=== PATIENT | female | born 1925 | race Caucasian/White ===

== ENCOUNTER 2016-03-29 12:17 | Emergency (ER) ==
[2016-03-29 12:22] VITALS: BP 163/84; TEMP 97.8; BMI 28.3
--- NOTE | 2016-03-29 13:08 | CT ---
EXAM: CT left knee without contrast HISTORY: Initial presentation for left knee injury. COMPARISON: None available. TECHNIQUE: Multiple axial images of the left knee were obtained without intravenous contrast. Imag es were reformatted in the sagittal and coronal planes. FINDINGS: Bone mineralization is decreased. There is no fracture or dislocation. Mild-moderate os teoarthritic changes seen throughout the knee. There is a moderate sized suprapatellar joint effusi on. Chondrocalcinosis noted in the menisci. No focal soft tissue abnormality is seen. Mild subcuta neous edema is present. Atherosclerotic calcifications noted. IMPRESSION: 1. No fracture or dislocation. 2. 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 3. Chondrocalcinosis of the menisci. 4. Subcutaneous edema.
--- NOTE | 2016-03-29 13:19 | ED.PDOC ---
General ED Provider: Dr. NITIN COTE-ER Chief Complaint: Knee Pain/Injury Stated Complaint: i fell in a hole and injured my knee Time Seen by Physician: 12:20 Mode of Arrival: Wheelchair Information Source: Patient Exam Limitations: No limitations Primary Care Provider: STU SHEIKH Nursing and Triage Documentation Reviewed and Agree: Yes Musculoskeletal Complaint Exam - Lower Extremity Complaint/Exam Location of Pain: Reports: Left, Knee Mechanism of Injury: Reports: Trauma Onset/Duration: 2 days Symptoms Are: Still present Onset of Pain: Reports: Immediate Initial Severity: Moderate Current Severity: Moderate Location: Reports: Discrete Character: Reports: Dull, Aching Alleviating: Reports: None Aggravating: Reports: Movement, Weight bearing, Prolonged standing Able to Bear Weight: Yes Associated Signs and Symptoms: Reports: Swelling. Denies: Redness, Bruising, Fever, Weakness, Numbness, Tingling DVT Risk Factors: Reports: Recent trauma Septic Arthritis Risk Factors: Reports: None Lower Extremity Findings: Present: Swelling, Ecchymosis, Erythema, Tenderness NV Bundle Intact Distal to Injury: Yes Compartment Syndrome Risk Factors: Present: Pain. Absent: Paralysis, Pallor, Pulselessness, Paresthesias Hayder's Sign Present: No Differential Diagnoses: Fracture, Strain, Sprain Review of Systems - Review Of Systems Constitutional: Reports: No symptoms Eyes: Reports: No symptoms Ears, Nose, Mouth, Throat: Reports: No symptoms Respiratory: Reports: No symptoms Cardiac: Reports: No symptoms GI: Reports: No symptoms : Reports: No symptoms Musculoskeletal: Reports: Joint pain, Joint swelling Skin: Reports: No symptoms Neurological: Reports: No symptoms Endocrine: Reports: No symptoms Hematologic/Lymphatic: Reports: No symptoms All Other Systems: Reviewed and Negative Past Medical History - Past Medical History Endocrine: Reports: Unknown Cardiovascular: Reports: Unknown Respiratory: Reports: Unknown Hematological: Reports: Unknown Gastrointestinal: Reports: Unknown Genitourinary: Reports: Unknown Neuro/Psych: Reports: Unknown Musculoskeletal: Reports: Unknown Cancer: Reports: Unknown Last Menstrual Period: none - Surgical History General Surgical History: Reports: Unknown - Family History Family History: Reports: Unknown - Social History Smoking Status: Never smoker Hx Substance Use: No Alcohol Screening: None Lives: With family Physical Exam - Physical Exam Appearance: Well-appearing, No pain distress, Well-nourished Pain Distress: Mild Eyes: KATHARINA, EOMI, Conjunctiva clear ENT: Ears normal, Nose normal, Oropharynx normal Neck: Supple Respiratory: Airway patent, Breath sounds clear, Breath sounds equal, Respirations nonlabored Cardiovascular: RRR, Pulses normal, No rub, No murmur GI/: Soft, Nontender, No masses, Bowel sounds normal, No Organomegaly Musculoskeletal: Limited ROM Skin: Warm, Dry, Normal color Neurological: Sensation intact, Motor intact, Reflexes intact, Cranial nerves intact, Alert, Oriented Psychiatric: Affect appropriate, Mood appropriate Interpretation - Radiology Interpretation Radiology Interpretation By: Radiologist Radiology Results: Negative Critical Care Note - Critical Care Note Total Time (mins): 0 Course - Course Orders, Labs, Meds: Orders Category Date Time Status CT KNEE LEFT WITHOUT CONTRAST Stat RADS 03/29/16 12:30 Completed Vital Signs: Temp Pulse Resp BP Pulse Ox 03/29/16 12:17 97.8 F 73 18 163/84 H 97 Departure - Departure Time of Disposition: 13:22 Disposition: HOME SELF-CARE Discharge Problem: Injury of knee Cellulitis, leg Qualifiers: Laterality: left Qualifier Code: (L03.116) Cellulitis of left lower limb Instructions: Knee Sprain (ED) Condition: Good Pt referred to PMD for follow-up: Yes Additional Instructions: clindamycin 150mg tid x 7days--norco 5mg q 4hrs prn pain #20--f/u with ortho walk in clinic on wednesday Allergies/Adverse Reactions: Allergies cephalexin Adverse Reaction (Verified 03/29/16 12:22) Disposition Discussed With: Patient, Family
== END 2016-03-29 13:29 | disposition home or self-care (01) ==
LOC: ED 12:17
DX: S89.92XA Unspecified injury of left lower leg, initial encounter (principal); L03.116 Cellulitis of left lower limb; W17.2XXA Fall into hole, initial encounter
CPT/HCPCS: 99283